=== PATIENT | male | born 1985 | race Caucasian/White ===

== ENCOUNTER 2021-10-25 19:05 | Emergency (ER) | payer SELFPAY ==
[~2021-10-25] VITALS: Ht 170.2 cm; Wt 73.0 kg
[2021-10-25 19:17] VITALS: BP 126/75
== END 2021-10-25 19:40 | disposition left against medical advice (07) ==
LOC: ER 19:05
DX: F10.129 Alcohol abuse with intoxication, unspecified (principal); Z53.21 Procedure and treatment not carried out due to patient leaving prior to being seen by health care provider